=== PATIENT | female | born 1975 | race Caucasian/White ===

== ENCOUNTER 2016-10-14 20:09 | Emergency (ER) | payer MEDICAID ==
[~2016-10-14] VITALS: Ht 172.7 cm; Wt 87.1 kg
[2016-10-14 23:49] VITALS: BP 169/96
[2016-10-15] MEDS ORDERED: HYDROcodone-ACET 10/325MG TAB PO ONE (00:15)
[2016-10-15] MEDS ORDERED: KETOROLAC TROMETH 60MG/2ML VIAL IM ONE (00:15)
== END 2016-10-15 00:52 | disposition home or self-care (01) ==
LOC: ER 20:12
DX: M25.562 Pain in left knee (principal); M25.561 Pain in right knee; E10.9 Type 1 diabetes mellitus without complications; Z90.710 Acquired absence of both cervix and uterus; Z88.6 Allergy status to analgesic agent; Z88.8 Allergy status to other drugs, medicaments and biological substances
CPT/HCPCS: 73560; 96372; 99284; J1885